=== PATIENT | female | born 1990 | race Two or more races ===

== ENCOUNTER → 2017-04-13 | Outpatient (CLI) | payer OTHER ==
[2017-04-20 15:01] LABS: THYROGLOBULIN AB <1.0
== END ==
LOC: LAB 15:13
DX: N91.2 Amenorrhea, unspecified (principal); Z72.51 High risk heterosexual behavior
CPT/HCPCS: 36415-UA; 83001-90; 83002-90; 84146-90; 84439-90; 84443-90; 84479-90; 86235-90; 86694-90; 86703-TC; 87491-90